=== PATIENT | female | born 1960 | race Caucasian/White ===

== ENCOUNTER 2016-07-08 07:29 | Day surgery (SDC) | payer OTHER ==
--- NOTE | 2016-07-07 19:20 | HISTORY AND PHYSICAL ---
ADMITTED: 07/08/2016 HISTORY OF PRESENT ILLNESS: The patient is a 56-year-old female who states on while working at [employer] she stepped back and tripped over some batteries. States that she rolled the ankle, was able to remain working throughout the remainder of the day. She said she woke up the next day with a very swollen, phoned [facility], and they were not able to get her into a doctor. She was eventually seen on 02/26/2016 where x- rays were taken and revealed no fractures; however, she was given a boot wrap and started physical therapy. She said that while in physical therapy and taping the ankle, the ankle continued to be very painful. She said she subsequently twisted it again and went to the [facility]. X-rays were taken and were negative as well. She said that she has had MRIs, bone scans, and nerve blocks in her low back which seemed to help some. However, she has been in the boot for over 2 months and the ankle continues to give out and is very symptomatic and painful. MEDICAL/SURGICAL HISTORY: Past medical history is essentially noncontributory. Past surgical history: Trigger finger release. PRIMARY CARE PROVIDER: Dr. Marquez MEDICATIONS: 1. She is currently on no medications. ALLERGIES: 1. Reports NO KNOWN DRUG OR FOOD ALLERGY. SOCIAL HISTORY: She is employed at [employer]. I do not know if she is partnered or . FAMILY HISTORY: Diabetes maternally and hypertension and circulatory problems. REVIEW OF SYSTEMS: A 10-point review of systems noncontributory to the chief complaint. PHYSICAL EXAMINATION: GENERAL: The patient is alert and oriented x3. HEAD AND NECK: PERRLA. Normocephalic. HEART: Regular rate and rhythm. Regular S1 and S2. LUNGS: Clear to auscultation. No wheezing, rhonchi, or rales. ABDOMEN: Soft, tender, nondistended. No palpable masses. LOWER EXTREMITY: Vascular: Dorsalis pedis, posterior tibial pulses are diminished but palpable. Multiple varicosities seen distally. Some degree of mottling noted on the dorsum of the foot. Dorsiflexion, plantar flexion, inversion, eversion is guarded. There is some tenderness along the course of the posterior tibial tendon. Positive anterior drawer sign and pain with palpation to the anterior talofibular ligament course. LAB/IMAGING: MRIs revealed significant fluid around the posterior tibial tendon , and the anterior talocalcaneal fibular ligaments were not visualized. IMPRESSION: 1. Ankle instability and chronic pain secondary to work-related accident on a [id number] basis 2. Chronic ankle instability and possible reflex sympathetic dystrophy PLAN: The patient has consented for an ankle arthroscopy and a stabilization via an Arthrex internal brace. She is well aware of the planned procedure. She is well aware of the complications, the no guarantee as far as alleviating all of her pain and complaints. She will have a more stable ankle in the end. Healing may be prolonged due to her diminished sensation. Nerve pain could be exacerbated due to her RSD like symptoms. She is well aware of this and would like to proceed regardless of the possible complications. Surgery is scheduled on an outpatient basis at [place] on 07/08/2016.
--- NOTE | 2016-07-07 19:20 | HISTORY AND PHYSICAL ---
ADMITTED: 07/08/2016 HISTORY OF PRESENT ILLNESS: The patient is a 56-year-old female who states on while working at [employer] she stepped back and tripped over some batteries. States that she rolled the ankle, was able to remain working throughout the remainder of the day. She said she woke up the next day with a very swollen, phoned [facility], and they were not able to get her into a doctor. She was eventually seen on 02/26/2016 where x- rays were taken and revealed no fractures; however, she was given a boot wrap and started physical therapy. She said that while in physical therapy and taping the ankle, the ankle continued to be very painful. She said she subsequently twisted it again and went to the [facility]. X-rays were taken and were negative as well. She said that she has had MRIs, bone scans, and nerve blocks in her low back which seemed to help some. However, she has been in the boot for over 2 months and the ankle continues to give out and is very symptomatic and painful. MEDICAL/SURGICAL HISTORY: Past medical history is essentially noncontributory. Past surgical history: Trigger finger release. PRIMARY CARE PROVIDER: Dr. Marquez MEDICATIONS: 1. She is currently on no medications. ALLERGIES: 1. Reports NO KNOWN DRUG OR FOOD ALLERGY. SOCIAL HISTORY: She is employed at [employer]. I do not know if she is partnered or . FAMILY HISTORY: Diabetes maternally and hypertension and circulatory problems. REVIEW OF SYSTEMS: A 10-point review of systems noncontributory to the chief complaint. PHYSICAL EXAMINATION: GENERAL: The patient is alert and oriented x3. HEAD AND NECK: PERRLA. Normocephalic. HEART: Regular rate and rhythm. Regular S1 and S2. LUNGS: Clear to auscultation. No wheezing, rhonchi, or rales. ABDOMEN: Soft, tender, nondistended. No palpable masses. LOWER EXTREMITY: Vascular: Dorsalis pedis, posterior tibial pulses are diminished but palpable. Multiple varicosities seen distally. Some degree of mottling noted on the dorsum of the foot. Dorsiflexion, plantar flexion, inversion, eversion is guarded. There is some tenderness along the course of the posterior tibial tendon. Positive anterior drawer sign and pain with palpation to the anterior talofibular ligament course. LAB/IMAGING: MRIs revealed significant fluid around the posterior tibial tendon , and the anterior talocalcaneal fibular ligaments were not visualized. IMPRESSION: 1. Ankle instability and chronic pain secondary to work-related accident on a [id number]-not basis 2. Chronic ankle instability and possible reflex sympathetic dystrophy PLAN: The patient has consented for an ankle arthroscopy and a stabilization via an Arthrex internal brace. She is well aware of the planned procedure. She is well aware of the complications, the no guarantee as far as alleviating all of her pain and complaints. She will have a more stable ankle in the end. Healing may be prolonged due to her diminished sensation. Nerve pain could be exacerbated due to her RSD like symptoms. She is well aware of this and would like to proceed regardless of the possible complications. Surgery is scheduled on an outpatient basis at [place] [place] on 07/08/2016.
[2016-07-08] MEDS ORDERED: PERCOCET1 TA4 PO (11:00)
[2016-07-08] MEDS ORDERED: ZOFRAN4 MG PO (11:00)
--- NOTE | 2016-07-08 11:02 | Provider's Discharge Care Plan ---
Problem, Goal, Plan Problem List 1. Sprain of other ligament of right ankle, sequela Goals: Improve function Instructions: Follow up as directed
--- NOTE | 2016-07-08 11:02 | Provider's Discharge Care Plan ---
Problem, Goal, Plan Problem List 1. Sprain of other ligament of right ankle, sequela Goals: Improve function Instructions: Follow up as directed
--- NOTE | 2016-07-08 12:50 | OPERATIVE REPORT ---
DATE OF SURGERY: 07/08/2016 SURGEON: Steve Ndiaye DPM PREOPERATIVE DIAGNOSIS: 1. Chronic ankle instability POSTOPERATIVE DIAGNOSES: 1. Chronic ankle instability with hemorrhagic synovitis and partial-thickness tear of the anterior talofibular ligament PROCEDURES PERFORMED: 1. Ankle arthroscopy with debridement 2. Lateral ankle stabilization ANESTHESIA: General. HEMOSTASIS: Achieved by a mid thigh tourniquet inflated to 275 mmHg pressure. Total tourniquet time: 60 minutes. MATERIALS: Used 3-0 and 4-0 Polysorb and 4-0 Surgipro and one Arthrex internal brace kit with #2 FiberWire. INJECTABLES: Injected 20 mL of 0.5% bupivacaine with epinephrine 1:200,000. COMPLICATIONS: None. CONDITION: The patient tolerated anesthesia and procedure well. INDICATIONS: The patient is a 56-year-old female who injured her foot while working for [employer] She has exhausted conservative care. She continues to have a chronic unstable swollen right ankle. She is well aware of the planned procedure. There are no contraindications to surgery at this time. SURGICAL TECHNIQUE: The patient was brought to the operating room and placed on the table in the supine position. At this time, a general anesthetic was administered. A pneumatic tourniquet was then placed above the right knee. The right lower extremity was then prepped and draped in normal sterile fashion. An intraoperative pause was carried out with identification of proper limb, consent form verified and confirmed, as well as administration of the 1 g of IV Ancef. At this time, an Esmarch bandage was utilized to exsanguinate the limb, the tourniquet was then inflated. Attention was then directed to procedure #1. ANKLE ARTHROSCOPY WITH DEBRIDEMENT: At this time, attention was directed to the anteromedial aspect of the right ankle, where a vertical incision was made medial to the tibialis anterior tendon. The incision was deepened by a portal dissection. The foot was then placed in an ankle joint distractor. A blunt trocar was placed and the scope was then entered into the medial portal. Upon entry, noted to encounter hemorrhagic synovitis as well as a posterior aspect of the talar dome, there was slight depression, indicating possible early onset of an osteochondral lesion. Corresponding incision was made on the anterior lateral aspect, deepened by a portal dissection. The 2.5 shaver was then placed. The anterior talofibular ligament was seen with a split-thickness tear anteriorly. The hemorrhagic synovium was debrided, as well as the deficit in the talar dome. A probe was utilized to inspect the knee for any further deficits which there were none. Approximately 2000 liters of lactated Ringer's were placed through the joint. The scope and shaver were removed. The portals were reapproximated with 4-0 Surgipro. Attention was directed to procedure #2. LATERAL ANKLE STABILIZATION: At this time, a linear incision was made on the anterior lateral aspect of the distal fibula. It was deepened by sharp and blunt dissection. A periosteal elevator was utilized to incise the distal fibula. The periosteum was reflected, K-wire was then directed at a 45 degree angle angled proximally. Verification under fluoroscopy not to invade the lateral gutter was confirmed. At this time, a 2.7 drill was then utilized, tapped accordingly, and the FiberTape the SwiveLock were inserted. Following the course of the anterior talofibular ligament with the split-thickness linear tear noted, an additional K-wire was driven into the body of the talus and just inferior to the trochlea surface of the talar dome oriented 45 degrees and directed posterior to the medial malleolus. Verified under fluoro for proper orientation and initially drilled with a 2.7 drill over-drilled with a 3.4, tapped with 3.4 and the FiberTape was inserted into an additional SwiveLock. The foot was held in a neutral position and the FiberTape was inserted under proper tension. The area was flushed. There was good motion in restriction noted. The tear in the anterior talofibular ligament was reapproximated with 3-0 Polysorb. Capsule and periosteum were reapproximated with 3-0 Polysorb in a [id number] fashion, subcutaneous with 4-0 and skin edges reapproximated in running fashion with 4-0 Surgipro. The area was locally anesthetized with the aforementioned local anesthetic. A light compressive dressing was applied. The tourniquet was released at 60 minutes with good digital perfusion. The patient tolerated anesthesia and procedure well and left the room with vital signs stable. While in recovery, written instructions of touchdown weightbearing with the aid of a fracture boot. Prognosis is guarded. She will be discharged home in stable condition.
== END 2016-07-08 14:52 | disposition home or self-care (01) ==
LOC: OR SRH 07:29 → SCU SRH 07:37
PROVIDERS: Podiatrist
PROC: 0SBF4ZZ Excision of Right Ankle Joint, Percutaneous Endoscopic Approach (ICD-10-PCS; principal; 2016-07-08 09:15)
PROC: 0MUQ0JZ Supplement Right Ankle Bursa and Ligament with Synthetic Substitute, Open Approach (ICD-10-PCS; principal; 2016-07-08 09:15)
DX: S93.411A Sprain of calcaneofibular ligament of right ankle, initial encounter (principal); M65.871 Other synovitis and tenosynovitis, right ankle and foot; M89.8X7 Other specified disorders of bone, ankle and foot; M25.371 Other instability, right ankle
CPT/HCPCS: 29229; 29240; 50004; 60001; 70002; 80102; 80144; 80212; 80360; 80852; 83413; 83612; 83860; 84038; 84522; 90100; 95059